=== PATIENT | male | born 1970 | race Native Hawaiian/Other Pacific Islander ===

== ENCOUNTER 2020-06-16 13:35 | Emergency (ER) | payer BC ==
[~2020-06-16] VITALS: Ht 185.4 cm; Wt 119.8 kg
[2020-06-16 13:38] VITALS: TEMP 98.7
[2020-06-16 14:55] VITALS: BP 122/70
== END 2020-06-16 15:00 | disposition home or self-care (01) ==
LOC: ED 13:35
DX: H60.8X1 Other otitis externa, right ear (principal)
CPT/HCPCS: 96372; 99283; J0696; J1885